=== PATIENT | female | born 1955 | race Caucasian/White ===

== ENCOUNTER 2019-08-16 02:04 | Outpatient (CLI) | payer OTHER, SELFPAY ==
[2019-08-16 08:03] LABS: Hemoglobin A1C 5.7 % (4.5-6.2)
[2019-08-16 08:57] LABS: Anion Gap 7.1 mmol/L (3-11); BUN 18 mg/dL (7-18); CO2 28.9 mmol/L (21.0-32.0); CREATININE 0.86 mg/dL (0.55-1.02); Calculated LDL 106 mg/dL; Chloride 107 mmol/L (98-107); Cholesterol 174 mg/dL (50-200); Glucose 124 mg/dL (70-100); HDL Cholesterol 52 mg/dL (40-60); Potassium 4.2 mmol/L (3.5-5.1); Sodium 143 mmol/L (136-145); Triglyceride 81 mg/dL (30-150)
== END 2019-08-16 02:24 ==
PROVIDERS: PCP Nurse Practitioner Family; Visit Provider Nurse Practitioner Family
DX: E78.5 Hyperlipidemia, unspecified (principal); Z00.00 Encounter for general adult medical examination without abnormal findings; Z13.1 Encounter for screening for diabetes mellitus
CPT/HCPCS: 36415; 80048; 80061; 83036

== ENCOUNTER 2021-08-31 10:09 | Outpatient (REF) | payer OTHER, SELFPAY ==
--- NOTE | 2021-08-31 08:30 | PAPFT_PTH ---
PATIENT: Marlen Thorne LOC: [facility] #:[id number] AGE/SX: 65/F ROOM: RE08/31/[address]: ROCÍO Jon : 1955 BED: DIS: 08/31/2021 SPEC #: [id number] RECD: 09/01/21 11:52 STATUS: VERONICA REKelli #: [id number] NIRMALA: 08/31/21 08:[address]: Dena Sutton DEPT: [facility] Cytology RECD BY: Juanita Sams Tissues: 1 - CX/ENDOCX FOR PAP SMEARS Procedures: PAP THIN PREP/UVM Screening HPV DNA PROBE Comments: [id number]
== END 2021-08-31 10:10 | disposition home or self-care (01) ==
LOC: LBN 10:09
PROVIDERS: PCP Nurse Practitioner Family; Visit Provider Nurse Practitioner Family
DX: Z12.4 Encounter for screening for malignant neoplasm of cervix (principal); Z11.51 Encounter for screening for human papillomavirus (HPV)
CPT/HCPCS: 88142; 87624

== ENCOUNTER 2022-10-03 02:57 | Outpatient (CLI) | payer OTHER, SELFPAY ==
[2022-10-03 12:26] LABS: Hemoglobin A1C 5.5 % (<5.7)
[2022-10-03 12:32] LABS: Anion Gap 5.5 mmol/L (3-11); BUN 16 mg/dL (7-18); CO2 28.5 mmol/L (21.0-32.0); CREATININE 0.9 mg/dL (0.55-1.02); Calculated LDL 113 mg/dL (<100); Chloride 105 mmol/L (98-107); Cholesterol 194 mg/dL (<200); Estimated GFR 71.39 (mL/min/1.73m2); Glucose 119 mg/dL (74-106); HDL Cholesterol 66 mg/dL (40-60); Potassium 4.4 mmol/L (3.5-5.1); Sodium 139 mmol/L (136-145); TSH (W/Ref FT4) 1.19 uIU/mL (0.36-3.74); Triglyceride 78 mg/dL (<150)
== END 2022-10-03 02:58 | disposition home or self-care (01) ==
LOC: LOS 02:57
PROVIDERS: PCP Nurse Practitioner Family; Visit Provider Nurse Practitioner Family
DX: Z00.00 Encounter for general adult medical examination without abnormal findings (principal)
CPT/HCPCS: 36415; 80048; 80061; 83036; 84443

== ENCOUNTER 2022-10-03 08:11 | Outpatient (RCR) | payer OTHER, SELFPAY ==
--- NOTE | 2022-10-03 08:15 | HOLTER_ITS ---
APPROVED REPORT Conclusion This is a 48-hour Holter monitor ordered for palpitations Rhythm throughout was sinus. Average heart rate was 75. Minimum was 52, maximum 118 There were rare isolated atrial premature beats There were occasional ventricular ectopic beats Patient reported palpitations dizziness and skipped beats but did not specify times so correlation wi th dysrhythmia could not be made
== END 2022-10-29 23:59 | disposition home or self-care (01) ==
LOC: CARDOPNVT 08:11
PROVIDERS: PCP Nurse Practitioner Family; Visit Provider Nurse Practitioner Family
DX: R00.2 Palpitations (principal)
CPT/HCPCS: 93225; 93226

== ENCOUNTER → 2023-05-26 01:36 | Outpatient (CLI) | payer OTHER, SELFPAY ==
--- NOTE | 2023-05-26 07:30 | DI.CT_ITS ---
Exam(s) CT ABDOMEN PELVIS W EXAM: CT ABDOMEN PELVIS W CLINICAL HISTORY: LLQ abd pain, sigmoid diverticulitis, K57.30. TECHNIQUE: Imaging Protocol: Axial computed tomography images with coronal and sagittal reformatted images were created and reviewed CONTRAST MATERIAL: Intravenous: Omnipaque 350 Contrast volume:100 ml Oral: yes / COMPARISON: No exams were available for comparison FINDINGS: ABDOMEN: Lung Bases: Normal where visualized. Liver: Attic steatosis no measurable mass. Gallbladder and biliary tract: Status post cholecystectomy. No radiodense calculus or dilation. Pancreas: Normal density, no abnormal calcifications or inflammatory process. Spleen: Normal. Kidneys: Normal size, contour and axis. No radiodense stones or obstructive uropathy. No suspicious m asses seen. Adrenal glands: No masses seen. Vasculature: Abdominal aorta non-dilated. Soft tissues: Unremarkable. PELVIS: Bladder: No gross wall thickening. No calculi.No focal mass. Bowel: No obstruction. Diverticulosis noted descending and sigmoid colon. Area of wall thickening and surrounding fat stranding in the proximal sigmoid consistent with diverticulitis. No evidence pe rforation or abscess. Appendix normal. Bones: Unremarkable for age. Reproductive organs: Within normal limits. Lymph nodes: Unremarkable. IMPRESSION:: Sigmoid diverticulitis. No perforation or abscess. RADIATION DOSE DELIVERED: 1,085.51mGy.cm Total DLP DATA REPOSITORY: All CT scans at this facility are submitted to the National Radiology Data Registry (NRDR) Dose Index Registry (DIR) with the [employer] ([employer]). RADIATION OPTIMIZATION: All CT scans at this facility use at least one of these dose optimization te chniques: automated exposure control; mA and/or kV adjustment per patient size (includes targeted exa ms where dose is matched to clinical indication); or iterative reconstruction.
[2023-05-26 11:27] LABS: CREATININE 0.8 mg/dL (0.55-1.02); Estimated GFR 81.72 (mL/min/1.73m2)
[2023-05-26] MEDS: Barium Sulfate 2% W/V-Berry Smoothie 450 ML BTL 900 ML PO (11:28)
[2023-05-26] MEDS: Omnipaque 350 MG/ML 100 ML BTL IJ (13:23)
[2023-05-26] MEDS: Normal Saline - Diluent 50 ML VIAL IJ (13:24)
== END ==
PROVIDERS: PCP Nurse Practitioner Family; Visit Provider Nurse Practitioner Family
DX: K57.30 Diverticulosis of large intestine without perforation or abscess without bleeding (principal)
CPT/HCPCS: 74177; 82565; J3490

== ENCOUNTER 2024-12-08 04:27 | Outpatient (CLI) | payer MEDICARE, SELFPAY ==
[2024-12-08 07:30] LABS: Abs Immature Grans 0.01 10^3/uL (0.0-0.06); Absolute Basophil Count 0.07 10^3/uL (0.0-0.2); Absolute Eosinophil Count 0.19 10^3/uL (0.0-0.7); Absolute Lymphocyte Count 2.32 10^3/uL (1.2-3.4); Absolute Monocyte Count 0.47 10^3/uL (0.1-0.8); Absolute Neutrophil Count 2.77 10^3/uL (1.2-6.7); Basophils % 1.2 %; Eosinophils % 3.3 %; HGB 15.4 g/dL (11.2-15.7); Immature Grans % 0.2 %; Lymphocytes % 39.8 %; MCH 32.9 pg (27.0-33.0); MCHC 34.2 % (32.0-36.0); MCV 96 fL (80-95); MPV 9.4 fL (8.0-11.0); Monocytes % 8.1 %; Neutrophils % 47.4 %; Platelet Count 197 10^3/uL (130-400); RBC 4.68 10^6/uL (3.93-5.22); RDW 12.2 % (11.7-14.6); RDW-SD 42.8 fL; WBC 5.83 10^3/uL (4.4-10.8)
[2024-12-08 08:31] LABS: Anion Gap 4.3 mmol/L (3-11); BUN 14 mg/dL (7-18); CO2 29.7 mmol/L (21.0-32.0); CREATININE 0.9 mg/dL (0.55-1.02); Calcium 9.3 mg/dL (8.5-10.1); Calculated LDL 117 mg/dL (<100); Chloride 109 mmol/L (98-107); Cholesterol 211 mg/dL (<200); Estimated GFR 70.07 (mL/min/1.73m2); Ferritin 245 ng/mL (8-252); Glucose 106 mg/dL (74-106); HDL Cholesterol 73 mg/dL (>or=50); Potassium 4.4 mmol/L (3.5-5.1); Sodium 143 mmol/L (136-145); Triglyceride 108 mg/dL (<150)
[2024-12-08 09:12] LABS: Hemoglobin A1C 5.5 % (<5.7)
[2024-12-09 09:46] LABS: Hepatitis C Ab w Rflx HCV PCR Negative (Negative)
== END 2024-12-08 04:28 | disposition home or self-care (01) ==
PROVIDERS: PCP Nurse Practitioner Family; Visit Provider Nurse Practitioner Family
DX: Z23 Encounter for immunization; Z78.0 Asymptomatic menopausal state; K62.5 Hemorrhage of anus and rectum; K57.30 Diverticulosis of large intestine without perforation or abscess without bleeding; E78.5 Hyperlipidemia, unspecified; E66.9 Obesity, unspecified; B00.1 Herpesviral vesicular dermatitis
CPT/HCPCS: 36415; 80048; 80061; 86803; 82728; 83036; 85025

== ENCOUNTER 2025-02-11 00:19 | Outpatient (CLI) | payer MEDICARE, SELFPAY ==
--- NOTE | 2025-02-11 07:15 | DI.DEXA_ITS ---
Exam(s) XR DEXA BONE DENSITY W/WO KAIT EXAM: XR DEXA BONE DENSITY W/WO KAIT CLINICAL HISTORY: osteoporosis screening in postmenopausal status,z78.0 TECHNIQUE: Routine DEXA evaluation of the lumbar spine, hip, or forearm. COMPARISON: No exams were available for comparison FINDINGS: Performed on a Hologic unit. Lateral image: No compression fracture evident. Lumbar Spine total T-score: 0.0 Hip total T-score:-0.3 Independent reading at the level of the femoral neck yields T-score of -1.8 (which is in the osteope mikal zone) Forearm total T-score: -0.6 IMPRESSION: Bone mineral density measures in the osteopenia range at the femoral neck level.. Fracture risk is m oderate. Note: Any spine fracture indicates 5x risk for subsequent spine fracture and 2x risk for subsequent h ip fracture. World Health Organization criteria for BMD interpretation classify patients: Normal...... T- Score at or above -1.0 Osteopenic... T- Score between -1.0 and -2.5 Osteoporosis... T-Score at or below -2.5
== END 2025-02-11 00:39 ==
LOC: DI 00:20
PROVIDERS: PCP Nurse Practitioner Family; Visit Provider Nurse Practitioner Family
DX: Z78.0 Asymptomatic menopausal state (principal); Z12.31 Encounter for screening mammogram for malignant neoplasm of breast; M85.89 Other specified disorders of bone density and structure, multiple sites
CPT/HCPCS: 77080

== ENCOUNTER 2025-02-28 02:55 | Outpatient (CLI) | payer MEDICARE, SELFPAY ==
--- NOTE | 2025-02-28 08:00 | DI.MAMMO_ITS ---
Exam(s) MAMMO SCREENING EXAM: MAMMO SCREENING CLINICAL HISTORY: screening,Z12.39. TECHNIQUE: Bilateral full field digital CC and MLO mammographic images were obtained with 3D tomosyn thesis and utilizing computer aided detection (CAD). COMPARISON: Prior outside mammograms were reviewed. FINDINGS: There has been no significant change in the appearance and distribution of the fibroglandular tissue. There are no new spiculated masses nor malignant appearing microcalcification groups. There is no significant architectural distortion nor skin thickening-retraction. IMPRESSION: No radiographic evidence of malignancy. BI-RADS Category 1 - Negative Breast Density - Category B - There are scattered areas of fibroglandular density. Breast density Category C or D implies that the patient has dense breast tissue. Dense breast tissue can make it harder to find cancer on a mammogram. Dense breast tissue is also associated with an incr eased risk of breast cancer. This information about the result of the mammogram report was provided to the patient to raise their awareness. Use this report when you speak with the patient about their risks for breast cancer, which includes their family history. At that time, you may recommend additional screening tests (Ultrasoun d or MRI) as these tests may add significant information. A negative radiographic report should not delay biopsy if a dominant or clinically suspicious mass is present. Up to ten percent of cancers are not identified on mammography. A negative report may reinforce clinical impression. Adenosis and dense breasts may obscure an underlying neoplasm. False positive reports average 6 to 10%. Patient will receive a letter notifying them of these results.
== END 2025-02-28 03:15 ==
LOC: DI 02:55
PROVIDERS: PCP Nurse Practitioner Family; Visit Provider Nurse Practitioner Family
DX: Z12.31 Encounter for screening mammogram for malignant neoplasm of breast (principal); R92.323 Mammographic fibroglandular density, bilateral breasts
CPT/HCPCS: 77063; 77067